=== PATIENT | female | born 1995 | race African-American/Black ===

== ENCOUNTER 2017-01-22 10:33 | Emergency (ER) | payer MEDICAID ==
[~2017-01-22] VITALS: Ht 162.6 cm; Wt 62.0 kg
[~2017-01-22 10:33] MED LIST: FLAG500T PO
[2017-01-22] MEDS ORDERED: IOHEXOL 350 MG/ML 10 ML VIAL (for RAD DIAG) IVCONTRAST ONE (10:34)
[2017-01-22 10:35] VITALS: BP 129/73; PULSE 75; RESP 15; TEMP 98.1; O2SAT 99
[2017-01-22] MEDS ORDERED: SODIUM CHLOR 0.9% 1000 ML INJ 1,000 ML IV SCH (10:55)
[2017-01-22] MEDS ORDERED: SODIUM CHLORIDE 0.9% FLUSH 10 ML FLUSH IV FLUSH PRN (11:00)
--- NOTE | 2017-01-22 11:06 | PD ---
HPI Chief Complaint: Abdominal Pain Time Seen by Provider: 11:01 Travel History International Travel<30 days: No Contact w/Intl Traveler<30days: No Traveled to known affect area: No History of Present Illness HPI 21-year-old female presents emergency Department with complaint of intermittent , generalized sharp abdominal pain that started this morning. Cannot specify exactly where the pain is. Reports vomiting one time. Denies fevers, dysuria, increased urination, abnormal vaginal discharge. Says the pain is worse with walking. Rates pain 7-10/10. Last menstrual period was in November. Takes the Depo-Provera shot. Normal bowel movement last night. Has taken Tylenol for the pain with no relief of symptoms. Does not himself primary care provider. Allergies to citrus fruits. Denies significant past medical history. Denies history of abdominal surgeries. Has no other medical complaints. No other modifying factors or associated signs and symptoms. PFSH Past Medical History Medical History: Denies Significant Hx Diminished Hearing: No Immunizations Current: Yes Tetanus Vaccination: < 5 Years Influenza Vaccination: No ?: Unknown LMP: Nov 2016 : 1 Para: 1 Past Surgical History Surgical History: No Previous Surgery Social History Alcohol Use: No Tobacco Use: No Substance Use: No Allergies-Medications (Allergen,Severity, Reaction): Coded Allergies: citric acid (Verified Allergy, Intermediate, HIVES, 01/22/17) Reported Meds & Prescriptions Reported Meds & Active Scripts Active Ibuprofen 600 Mg Tab 600 Mg PO Q6H PRN Review of Systems Except as stated in HPI: all other systems reviewed are Neg Physical Exam Narrative GENERAL: Well-nourished, well-developed black female patient, in no acute distress; afebrile SKIN: Warm and dry. HEAD: Atraumatic. Normocephalic. EYES: Pupils equal and round. No scleral icterus. No injection or drainage. ENT: Mucosa pink and moist. Airway patent. NECK: Trachea midline. CARDIOVASCULAR: Regular rate and rhythm. No murmur appreciated. RESPIRATORY: No accessory muscle use. Clear to auscultation. Breath sounds equal bilaterally. GASTROINTESTINAL: Abdomen soft, tenderness on palpation to RLQ, nondistended. Hepatic and splenic margins not palpable. Bowel sounds are active 4 quadrants. Nonrigid. Positive rebound tenderness. No guarding. PELVIC: Exam done in the presence of a nurse. Speculum exam reveals nonedematous and nonerythematous cervix with nonodorous normal appearing discharge. Bimanual exam reveals no palpable masses or adnexa tenderness, no uterine tenderness. No cervical motion tenderness. Tenderness on palpation to the bladder; nondistended. BACK: No CVA tenderness. MUSCULOSKELETAL: No obvious deformities. No clubbing. No cyanosis. No edema. NEUROLOGICAL: Awake and alert. Oriented 3. No obvious cranial nerve deficits. Motor grossly within normal limits. Normal speech. PSYCHIATRIC: Appropriate mood and affect; insight and judgment normal. Data Data Last Documented VS Vital Signs Date Time Temp Pulse Resp B/P (MAP) Pulse Ox O2 Delivery O2 Flow Rate FiO2 01/22/17 15:22 68 16 114/78 (90) 100 01/22/17 10:35 98.1 Orders Orders Complete Blood Count With Diff (01/22/17 10:55) Comprehensive Metabolic Panel (01/22/17 10:55) Lipase (01/22/17 10:55) Prothrombin Time / Inr (Pt) (01/22/17 10:55) Act Partial Throm Time (Ptt) (01/22/17 10:55) Urinalysis - C+S If Indicated (01/22/17 10:55) Iv Access Insert/Monitor (01/22/17 10:55) Ecg Monitoring (01/22/17 10:55) Oximetry (01/22/17 10:55) Sodium Chloride 0.9% Flush (Ns Flush) (01/22/17 11:00) Ed Urine Pregnancytest Poc (01/22/17 10:55) Sodium Chlor 0.9% 1000 Ml Inj (Ns 1000 M (01/22/17 10:55) Gc And Chlamydia Pcr (01/22/17 10:55) Wet Prep Profile (01/22/17 10:55) Oral Contrast - Adult (01/22/17 11:02) Ct Abd/Pel W Iv Contrast(Rout) (01/22/17 13:55) Iohexol 350 Inj (Omnipaque 350 Inj) (01/22/17 10:34) Ed Discharge Order (01/22/17 15:19) Labs Laboratory Tests Test 01/22/17 10:45 01/22/17 11:00 01/22/17 13:15 Urine Color YELLOW Urine Turbidity CLEAR Urine pH 5.5 Urine Specific Coleman 1.017 Urine Protein NEG mg/dL Urine Glucose (UA) NEG mg/dL Urine Ketones NEG mg/dL Urine Occult Blood NEG Urine Nitrite NEG Urine Bilirubin NEG Urine Urobilinogen LESS THAN 2.0 MG/DL Urine Leukocyte Esterase NEG Urine WBC LESS THAN 1 /hpf Urine Squamous Epithelial Cells <1 /hpf Urine Transitional Epithelial Cells <1 /hpf Urine Bacteria RARE /hpf Microscopic Urinalysis Comment CULT NOT INDICATED White Blood Count 7.0 TH/MM3 Red Blood Count 5.27 MIL/MM3 Hemoglobin 11.4 GM/DL Hematocrit 36.2 % Mean Corpuscular Volume 68.6 FL Mean Corpuscular Hemoglobin 21.7 PG Mean Corpuscular Hemoglobin Concent 31.6 % Red Cell Distribution Width 17.2 % Platelet Count 311 TH/MM3 Mean Platelet Volume 8.8 FL Neutrophils (%) (Auto) 57.7 % Lymphocytes (%) (Auto) 34.9 % Monocytes (%) (Auto) 5.1 % Eosinophils (%) (Auto) 1.8 % Basophils (%) (Auto) 0.5 % Neutrophils # (Auto) 4.0 TH/MM3 Lymphocytes # (Auto) 2.4 TH/MM3 Monocytes # (Auto) 0.4 TH/MM3 Eosinophils # (Auto) 0.1 TH/MM3 Basophils # (Auto) 0.0 TH/MM3 CBC Comment DIFF FINAL Differential Comment Prothrombin Time 10.1 SEC Prothromb Time International Ratio 1.0 RATIO Activated Partial Thromboplast Time 27.3 SEC Blood Urea Nitrogen 10 MG/DL Creatinine 0.94 MG/DL Random Glucose 101 MG/DL Total Protein 8.5 GM/DL Albumin 4.1 GM/DL Calcium Level 9.0 MG/DL Alkaline Phosphatase 90 U/L Aspartate Amino Transf (AST/SGOT) 22 U/L Alanine Aminotransferase (ALT/SGPT) 38 U/L Total Bilirubin 0.5 MG/DL Sodium Level 138 MEQ/L Potassium Level 4.0 MEQ/L Chloride Level 107 MEQ/L Carbon Dioxide Level 23.7 MEQ/L Anion Gap 7 MEQ/L Estimat Glomerular Filtration Rate 90 ML/MIN Lipase 198 U/L Clue Cells (Wet Prep) NONE SEEN Vaginal Trichomonas (Wet Prep) NONE SEEN Vaginal Yeast (Wet Prep) NONE SEEN Chlamydia trachomatis DNA (PCR) NOT DETECTED Neisseria gonorrhoeae DNA (PCR) NOT DETECTED MDM Medical Decision Making Medical Screen Exam Complete: Yes Emergency Medical Condition: Yes Medical Record Reviewed: Yes ( ) Differential Diagnosis Appendicitis, UTI, pyelonephritis, kidney stone, PID Narrative Course 21-year-old female with right lower quadrant abdominal pain on physical exam. Discussed the patient with Dr. Neff, my attending physician, and he agrees with my plan of care. CBC, CMP, lipase, urinalysis, wet prep, chlamydia, gonorrhea ordered. 1330: CBC, coags, CMP unremarkable. Lipase 190. Urinalysis without signs of infection. 1513: CT abdomen/pelvis: Abdomen/Pelvis CT 01/22/17 1355 Signed Impressions: Service Date/Time: Sunday, January 22, 2017 14:13 - CONCLUSION: 1. Normal appendix. 2. Moderately distended bladder without evidence for bladder wall thickening. Recommend clinical correlation for neurogenic bladder versus less likely bladder outlet obstruction. Daniel Delgado MD Patient provided a copy of the CT report. Bacterial vaginosis, vaginal yeast, trichomoniasis is negative. I do not suspect cervicitis and will not treat the patient empirically in the ER. Chlamydia and gonorrhea pending. Discussed the patient with Dr. Neff, my attending physician, and he agrees with discharge and for the patient to follow up with urology. Instructed patient to follow up with urology. Instructed patient to follow up with primary care provider. Patient verbalizes understanding and agreement with treatment plan. Patient is medically cleared and stable for discharge. Discussed reasons to return to the emergency department. Patient agrees with treatment plan. The patients vital signs are stable and the patient is stable for outpatient follow-up and treatment. Patient discharged home, stable and in no acute distress. Diagnosis Primary Impression: Abdominal pain Qualified Codes: R10.31 - Right lower quadrant pain Referrals: Primary Care Physician Urologist Patient Instructions: Abdominal Pain (ED), General Instructions Additional Instructions: Ibuprofen or Tylenol as directed and as needed for pain Follow-up with urology Follow-up with primary care provider Return to the emergency department immediately if worsening of symptoms Med/Other Pt SpecificInfo: Prescription(s) given Scripts Ibuprofen (Ibuprofen) 600 Mg Tab 600 MG PO Q6H Y for PAIN, #20 TAB 0 Refills Prov: Hillary Green 01/22/17 Disposition: 01 DISCHARGE HOME Condition: Stable Hillary Green Jan 22, 2017 11:06
[2017-01-22 11:37] LABS: BASOPHIL % 0.5 % (0.0-2.0); EOSINOPHIL # 0.1 TH/MM3 (0-0.4); EOSINOPHIL % 1.8 % (0.0-4.0); HEMATOCRIT 36.2 % (35.0-46.0); HEMO FLAGS DIFF FINAL; LYMPH % 34.9 % (9.0-44.0); LYMPHOCYTE # 2.4 TH/MM3 (1.0-4.8); MEAN CELL VOLUME 68.6 FL (80.0-100.0); MEAN CORPUSCULAR HEMOGLOBIN 21.7 PG (27.0-34.0); MEAN CORPUSCULAR HGB CONC 31.6 % (32.0-36.0); MONO % 5.1 % (0.0-8.0); NEUT % 57.7 % (16.0-70.0); PLATELET COUNT 311 TH/MM3 (150-450); RED BLOOD COUNT 5.27 MIL/MM3 (4.00-5.30); RED CELL DISTRIBUTION WIDTH 17.2 % (11.6-17.2)
[2017-01-22 11:42] LABS: BACTERIA, URINE RARE /hpf; BLOOD, URINE NEG (NEG); GLUCOSE,URINE NEG (NEG); KETONE, URINE NEG (NEG); NITRITE,URINE NEG (NEG); PH, URINE 5.5 (5.0-8.5); SQUAMOUS EPITHELIAL CELL URINE <1 /hpf (0-5); TRANSITIONAL EPI CELLS, URINE <1 /hpf; URINE COLOR YELLOW (YELLW/STRAW)
[2017-01-22 11:44] LABS: COMMENT (UR) CULT NOT INDICATED; CULTURE IF INDICATED CULT NOT INDICATED
[2017-01-22 11:49] LABS: APTT (PATIENT) 27.3 SEC (24.3-30.1); PROTHROMBIN TIME - PATIENT 10.1 SEC (9.8-11.6)
[2017-01-22 11:55] LABS: ANION GAP 7 MEQ/L (5-15); AST (GOT) 22 U/L (15-37); BICARBONATE 23.7 MEQ/L (21.0-32.0); BLOOD UREA NITROGEN 10 MG/DL (7-18); CHLORIDE 107 MEQ/L (98-107); GLOMERULAR FILTRATION RATE 90 ML/MIN (>89); SODIUM (NA) 138 MEQ/L (136-145)
[2017-01-22 11:58] LABS: ALKALINE PHOSPHATASE 90 U/L (45-117); ALT (GPT) 38 U/L (10-53); TOTAL BILIRUBIN ADULT 0.5 MG/DL (0.2-1.0)
--- NOTE | 2017-01-22 14:42 | RADRPT ---
EXAM DATE/TIME: 01/22/2017 14:13 [facility] COMPARISON: No previous studies available for comparison. INDICATIONS : Intermittent, generalized sharp abdominal pain. IV CONTRAST: 95 cc Omnipaque 350 (iohexol) IV ORAL CONTRAST: No oral contrast ingested. RADIATION DOSE: 6.31 CTDIvol (mGy) MEDICAL HISTORY : None SURGICAL HISTORY : None. ENCOUNTER: Initial ACUITY: 1 day PAIN SCALE: 7/10 LOCATION: Bilateral abdomen. TECHNIQUE: Volumetric scanning of the abdomen and pelvis was performed. Using automated exposure control and ad justment of the mA and/or kV according to patient size, radiation dose was kept as low as reasonably achievable to obtain optimal diagnostic quality images. DICOM format image data is available electro nically for review and comparison. FINDINGS: LOWER LUNGS: The visualized lower lungs are clear. LIVER: Homogeneous density without lesion. There is no dilation of the biliary tree. No calcified gallston es. SPLEEN: Normal size without lesion. PANCREAS: Within normal limits. KIDNEYS: Normal in size and shape. There is no mass, stone or hydronephrosis. ADRENAL GLANDS: Within normal limits. VASCULAR: There is no aortic aneurysm. BOWEL/MESENTERY: The stomach, small bowel, and colon demonstrate no acute abnormality. Minimal sigmoid diverticulosis . The appendix is visualized and normal in appearance. There is no free intraperitoneal air or fluid. ABDOMINAL WALL: Laxity of the anterior abdominal wall in the periumbilical region. No definite hernia. RETROPERITONEUM: There is no lymphadenopathy. BLADDER: Moderately distended bladder without asymmetrical wall thickening or radiopaque calculi. REPRODUCTIVE: Prominence of the endometrium likely related to patient's phase of menstrual cycle. INGUINAL: There is no lymphadenopathy or hernia. MUSCULOSKELETAL: Within normal limits for patient age. CONCLUSION: 1. Normal appendix. 2. Moderately distended bladder without evidence for bladder wall thickening. Recommend clinical kiarra elation for neurogenic bladder versus less likely bladder outlet obstruction. Daniel Delgado MD on January 22, 2017 at 14:34 Board Certified Radiologist. This report was verified electronically.
[2017-01-22] MEDS ORDERED: IBUP-232 PO (15:16)
[2017-01-22 15:22] VITALS: BP 114/78
[2017-01-22 15:41] LABS: CHLAMYDIA PCR NOT DETECTED (NOT DETECT); NEISSERIA PCR NOT DETECTED (NOT DETECT)
== END 2017-01-22 15:42 | disposition home or self-care (01) ==
LOC: NEPD 10:33
DX: R10.31 Right lower quadrant pain (principal); R10.84 Generalized abdominal pain
CPT/HCPCS: 74177; 80053; 81001; 83690; 84703; 85025; 85610; 85730; 87210; 87491; 87591; 96360; 99285; J7030; Q9967